=== PATIENT | male | born 1975 | race American Indian/Alaskan Native ===

== ENCOUNTER 2016-10-09 12:46 | Emergency (ER) | payer OTHER ==
[2016-10-09 13:38] VITALS: BP 127/89
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
[2016-10-09] MEDS ORDERED: MOTRIN PO ONE (14:56)
[2016-10-09] MEDS ORDERED: FLEXERIL PO ONE (14:56)
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
== END 2016-10-09 16:13 | disposition home or self-care (01) ==
LOC: ED 12:46
DX: M54.5 Low back pain (principal); V89.2XXA Person injured in unspecified motor-vehicle accident, traffic, initial encounter; Y93.89 Activity, other specified; Y99.9 Unspecified external cause status; Y92.410 Unspecified street and highway as the place of occurrence of the external cause
CPT/HCPCS: 72100